=== PATIENT | male | born 1955 | race Caucasian/White ===

== ENCOUNTER 2021-03-10 09:03 | Emergency (ER) | payer MEDICARE ==
[~2021-03-10 09:03] MED LIST: COL-RITE250 MG PO; GLUCOPHAGE1000 MG PO; GLUCOTROL 10 MG10 MG PO; IBUPROFEN400 MG PO; LEVEMIR100 UNIT/1 SC; PERCOCET 7.5-31 EACH PO; PRINIVIL5 MG PO; RISPERDAL0.25 MG PO; SYNTHROID25 MCG PO; ZOFRAN4 MG PO
[2021-03-10 09:50] LABS: HEMOGLOBIN 13.9 gm/dl (14.0-17.5); RED BLOOD COUNT 4.42 M/UL (4.20-5.50); WHITE BLOOD COUNT 6.1 K/UL (4.5-11.0)
[2021-03-10 10:15] LABS: BUN/CREATININE RATIO 20 (0-10)
[2021-03-10] MEDS ORDERED: BLUE-EMU LIDOC1 EACH TP (11:05)
== END 2021-03-10 11:17 | disposition home or self-care (01) ==
LOC: ER1 09:03
PROVIDERS: Student in an Organized Health Care Education/Training Program
DX: R07.89 Other chest pain (principal); I25.10 Atherosclerotic heart disease of native coronary artery without angina pectoris; E11.9 Type 2 diabetes mellitus without complications; I10 Essential (primary) hypertension
CPT/HCPCS: 71045; 80053; 82550; 82553; 83874; 84484; 85025; 93005; 99285